=== PATIENT | male | born 1955 | race Caucasian/White ===

== ENCOUNTER 2021-01-10 09:37 | Observation (INO) | payer BC ==
[2021-01-10] VITALS (10 sets, daily range): BP systolic 100–125; BP diastolic 67–86; PULSE 70–92; TEMP 97.5–98.1
[~2021-01-10] VITALS: Ht 167.6 cm; Wt 75.8 kg
[~2021-01-10 09:37] MED LIST: ASPI325T6 PO; CARDURA4 MG PO; CELEBREX 200MG200 MG PO; FOLIC ACID 40400 MCG PO; IRON TABLETS325 MG PO; MOBIC15 MG PO; NORCO 325 MG-7.1 TAB PO; OCUVITE1 TA1 PO; PRIL40 PO; TYLENOL 500MG500 MG PO; VITAMIN C500 MG PO
[2021-01-10] MEDS ORDERED: LUTEIN6 MG PO (10:19)
[2021-01-10] MEDS ORDERED: GLUCOSAMINE 1000 PO (10:19)
[2021-01-10] MEDS ORDERED: GLUCOPHAGE1000 MG PO (10:20)
[2021-01-10] MEDS ORDERED: FLOMAX 0.40.4 MG/CAP PO (10:20)
[2021-01-10] MEDS ORDERED: PHARMASSURE ZIN50 MG PO (10:20)
[2021-01-10] MEDS ORDERED: ZOCOR5 MG PO (10:21)
--- NOTE | 2021-01-10 14:40 | NUR ---
Pt arrives to surgical unit rm [id number] from PACU following procedure, drowsy but awake and oriented x 4. Jiménez catheter to DD with strawberry colored urine with spots of bright red blood lining tubing. IVF's infusing by gravity to left hand site without s/s of complications. Pt's spouse at bedside. POC reviewed with pt and spouse. No further needs reported. Call light in reach.
--- NOTE | 2021-01-10 15:51 | NUR ---
I spoke with patient and his spouse at bedside about mitomycin which is currently on hold until tomorrow morning. Dr Paul is planning to round early in am to make final decision about mitomycin and if it is a go, I will plan to start mitomycin instillation at 0700. Currently pt's urine is christianson red and without clots. A blank order set for mitomycin was left on the chart for use in am if needed as no orders have yet been recieved.
--- NOTE | 2021-01-10 18:15 | NUR ---
Pt sitting up in bed, continues to deny pain at this time. IVF's infusing per orders. Jiménez catheter with red urine and occasional clots, more clear than when pt first arrived from PACU. No needs reported. Call light in reach.
--- NOTE | 2021-01-10 18:40 | NUR ---
Report with MEJIA Mendoza. Pt sitting up in bed, reports having trouble getting dinner ordered which is cleared up by this nurse. Call light in reach.
--- NOTE | 2021-01-10 21:00 | NUR ---
Patient did get a dinner tray and tolerated well. No complaints of pain at this time. Jiménez catheter draining bloody urine with clots noted. IV fluids infusing per orders to left hand. SCDs on bilateral legs. No additional needs at this time.
[2021-01-11 00:41] VITALS: BP 111/68; PULSE 70; TEMP 98.1
[2021-01-11 04:50] VITALS: BP 97/62; PULSE 67; TEMP 98.6
--- NOTE | 2021-01-11 06:19 | NUR ---
Patient's urine is not as dark and has less clots in it this morning. Still flowing to dependent drainage bag. No complaints of pain throughout the night.
--- NOTE | 2021-01-11 07:30 | NUR ---
Patient sitting up in bed, alert and oriented x 3. Assessment complete. Denies pain at this time. Jiménez to DD with pink urine present, occassional clots noted. Denies pain at this time. Denies furhter needs at this time.
[2021-01-11 07:36] VITALS: BP 114/67; PULSE 66; TEMP 97.5
--- NOTE | 2021-01-11 07:53 | NUR ---
Consent has been signed for mitomycin instillation. Pharmacy delivered mitomycin and it was verified correct with Zoila Erickson RN by comparing printed label with entered order, Pt has had instruction from both Dr Paul and this nurse about purpose, precautions, and procedure. Catheter was drained of clear yellow urine and clamped. Following administration of chemotherapy protocal, PPE was worn during administration and disposal of waste and it was administered into bladder. Pt is aware to reposition every 15 minutes and we will dc at 0840. Pt denies questions. Precaution signage was posted.
--- NOTE | 2021-01-11 08:52 | NUR ---
Dwell time completed. 200ml of clear yellow urine with old clot x1 noted dislodged from drainage bag tubing. 10ml removed from balloon and catheter was dc'd without difficulty. Pericare provided. Report to Selene BA. She will instruct in six bottle routine. Chemotherapy precautions followed throughout this process.
--- NOTE | 2021-01-11 09:00 | NUR ---
Patient instructed on 6 cup routine. No further needs at this time.
--- NOTE | 2021-01-11 09:01 | NUR ---
SW met with the patient to discuss discharge plan. The patient lives in [place] with his , Laquita (ph#[phone]). He reports independence with ADLs and does not have any DME. The patient's PCP is Dr. Chris Perez and he receives his medications from [facility]. He reports no difficulties obtaining his meds. The patient does not have a DPOA-HC and he was not interested in completing one while here. The patient plans to return home with his upon discharge. No additional needs at this time. *Discharge plan: home with *
--- NOTE | 2021-01-11 10:34 | NUR ---
Contacted Dr. Paul patient would like to discharge. Voiding clear pink urine without difficulty after modi catheter removal. Spouse at bedside. No furhter needs at this time.
--- NOTE | 2021-01-11 11:13 | NUR ---
Discharge education provided to patient and spouse. Educated on when to call provider and follow up appointment. Educated on increasing fluid intake. All questions answered. INT discontinued, catheter tip intact. Denies further needs at this time.
== END 2021-01-11 11:18 | disposition home or self-care (01) ==
LOC: SDCO 09:37 → SURG 14:23
PROVIDERS: ADMIT Urology
DX: C67.8 Malignant neoplasm of overlapping sites of bladder (principal); E78.5 Hyperlipidemia, unspecified; K21.9 Gastro-esophageal reflux disease without esophagitis; M19.90 Unspecified osteoarthritis, unspecified site; E11.9 Type 2 diabetes mellitus without complications; F17.210 Nicotine dependence, cigarettes, uncomplicated; Z20.822 Contact with and (suspected) exposure to COVID-19; Z79.84 Long term (current) use of oral hypoglycemic drugs; Z79.899 Other long term (current) drug therapy; Z90.49 Acquired absence of other specified parts of digestive tract
CPT/HCPCS: A9284; G0378; J0690; J1100; J1170; J1815; J2405; J2704; J3010; J7030; J7120; J9280; Q9967

== ENCOUNTER 2021-02-22 09:36 | Day surgery (SDC) | payer BC ==
[~2021-02-22] VITALS: Ht 161.5 cm; Wt 73.2 kg
[~2021-02-22 09:36] MED LIST changes: +FLOMAX 0.40.4 MG/CAP PO; +GLUCOPHAGE1000 MG PO; +GLUCOSAMINE 1000 PO; +LUTEIN6 MG PO; +PHARMASSURE ZIN50 MG PO; +ZOCOR5 MG PO
[2021-02-22 10:10] VITALS: BP 120/76; PULSE 67; TEMP 97.9
--- NOTE | 2021-02-22 12:45 | NUR ---
Patient and family request to speak with Dr. Paul. Dr. Paul was called, told patient how prodeure went and to stop by office for work release.
[2021-02-22 13:45] VITALS: BP 140/80; PULSE 81; TEMP 97.8
--- NOTE | 2021-02-22 13:45 | NUR ---
Patient return to bay 3 via cart. Drowsy, wakes easily. Postop vital signs started.
[2021-02-22 14:00] VITALS: BP 131/74; PULSE 88
--- NOTE | 2021-02-22 14:00 | NUR ---
Patient reclined semi bob. Drowsy, wakes easily to name. Vital signs stable. Tolerating drink well and agrees to try pudding. Patient is on 1L O2, but breathing throught mouth. O2 sat increases while patient is awake and talking.
[2021-02-22 14:15] VITALS: BP 132/75; PULSE 88
--- NOTE | 2021-02-22 14:15 | NUR ---
Patient sitting up in bed, denies discomfort. Vital signs stable. Tolerating food and drink well. Patient request to have brought to room, unable to locate . Will continue to monitor and look for .
[2021-02-22 14:30] VITALS: BP 114/74; PULSE 83
--- NOTE | 2021-02-22 14:30 | NUR ---
Patient is tolerating food and drink well, denies discomfort. Patient up to bathroom, voided without difficulty. Urine was pink and clear. brought to bedside.
--- NOTE | 2021-02-22 14:45 | NUR ---
Reviewed discharge instructions and education material with patient and , both verbalized understanding. Discontinued IV with no complications. Instructed patient to dress, then call for tranportation.
--- NOTE | 2021-02-22 15:05 | NUR ---
Tranfered patient via wheelchair to personal vehicle accompanied by .
== END 2021-02-22 15:05 | disposition home or self-care (01) ==
LOC: SDCO 09:36
DX: C67.8 Malignant neoplasm of overlapping sites of bladder (principal); N40.0 Benign prostatic hyperplasia without lower urinary tract symptoms; E78.5 Hyperlipidemia, unspecified; E11.9 Type 2 diabetes mellitus without complications; K21.9 Gastro-esophageal reflux disease without esophagitis; M19.90 Unspecified osteoarthritis, unspecified site; F17.210 Nicotine dependence, cigarettes, uncomplicated; Z79.899 Other long term (current) drug therapy
CPT/HCPCS: J0690; J1170; J2175; J2405; J2704; J3010; J7120

== ENCOUNTER → 2024-05-27 | Outpatient (CLI) | payer MEDICARE | LOC: COL.RAD 14:42 | DX: N32.3 Diverticulum of bladder (principal); K57.30 Diverticulosis of large intestine without perforation or abscess without bleeding; Z87.440 Personal history of urinary (tract) infections; Z85.51 Personal history of malignant neoplasm of bladder ==